=== PATIENT | female | born 1985 ===

== ENCOUNTER 2020-04-30 09:52 | Inpatient (IN) ==
[2020-04-30] MEDS ORDERED: Lactated Ringers 1000 ml BAG 1,000 ML IV ONE (11:32)
[2020-04-30] MEDS ORDERED: Oxytocin in LR 20 UNITS/1,000 ML BAG IVPB SCH (12:00)
[2020-04-30 12:17] LABS: ABS Lymphocytes 1.7 10^3/ul (1.0-4.8); ABS Monocytes 1.2 10^3/ul (0-0.8); ABS Neutrophils 7.8 10^3/ul (1.5-7.7); Eosinophil % 0.5 %; Hematocrit 37 % (35-47); Hemoglobin 12.6 g/dL (12.0-16.0); Lymphocyte % 15.7 %; Mean Corpuscular HGB Conc 34 g/dL (31-36); Mean Corpuscular Hemoglobin 31 pg (27-31); Mean Corpuscular Volume 91 fL (80-97); Platelet Count 148 10^3/uL (150-450); Red Blood Count 4.12 10^6 /uL (3.70-4.87); Red Cell Distribution Width 14 % (10-15); White Blood Count 10.8 10^3/uL (3.5-10.8)
[2020-04-30 12:53] LABS: Urine Benzodiazepine Screen None Detected (None Detect); Urine Cannabinoids Screen None Detected (None Detect); Urine Opiates Screen None Detected (None Detect)
[2020-04-30] MEDS: Lactated Ringers 1000 ml BAG 1,000 ML IV SCH ×2 (14:13→23:04)
[2020-05-01] MEDS: Lactated Ringers 1000 ml BAG 1,000 ML IV SCH (02:59)
[2020-05-01] MEDS ORDERED: OBEPIDURAL 250 ML EPIDURAL ONE (13:10)
[2020-05-01] MEDS ORDERED: Sodium Citrate/Citric Acid LIQ 15 ML UDC PO PRN (14:08)
[2020-05-01] MEDS ORDERED: Lactated Ringers 1000 ml BAG 500 ML IV PRN ×2 (14:08)
[2020-05-01] MEDS ORDERED: EPHEDrine (Pressors) 50 MG/ML VIAL IV PUSH PRN ×2 (14:08)
[2020-05-01] MEDS ORDERED: Lactated Ringers 1000 ml BAG 1,000 ML IV ONE (14:08)
[2020-05-01] MEDS ORDERED: Phenylephrine 40 mcg/mL 10mL (400mcg) SYRINGE IV PUSH PRN ×2 (14:08)
[2020-05-01] MEDS ORDERED: OBEPIDURAL 250 ML EPIDURAL SCH (15:00)
[2020-05-01] MEDS ORDERED: Lactated Ringers 1000 ml BAG 1,000 ML IV SCH (15:00)
[2020-05-02] MEDS ORDERED: Dibucaine 1% OINT 28.35 GM TUBE PR PRN (05:47)
[2020-05-02] MEDS ORDERED: Witch Hazel PAD JAR TOPICAL PRN (05:47)
[2020-05-02] MEDS ORDERED: Glycerin ADULT 2.4 gm SUPP PR PRN (05:47)
[2020-05-02] MEDS ORDERED: Methylergonovine 0.2 mg AMPULE 1 ml AMP IM ONE (05:57)
[2020-05-02] MEDS ORDERED: Oxytocin in LR 20 UNITS/1,000 ML BAG IVPB SCH (06:00)
[2020-05-02 08:46] LABS: Hematocrit 27 % (35-47); Hemoglobin 9.3 g/dL (12.0-16.0); Mean Corpuscular HGB Conc 34 g/dL (31-36); Mean Corpuscular Hemoglobin 31 pg (27-31); Mean Corpuscular Volume 91 fL (80-97); Mean Platelet Volume 10.9 fL (7.4-10.4); Platelet Count 127 10^3/uL (150-450); Red Cell Distribution Width 13 % (10-15); White Blood Count 27.4 10^3/uL (3.5-10.8)
[2020-05-02 09:32] LABS: ABS Basophils 0.1 10^3/ul (0-0.2); ABS Lymphocytes 1.1 10^3/ul (1.0-4.8); ABS Monocytes 2.3 10^3/ul (0-0.8); ABS Neutrophils 23.9 10^3/ul (1.5-7.7); Lymphocyte % 4.2 %
[2020-05-02] MEDS ORDERED: Lidocaine 1% VIAL 10 MG/ML VIAL ONE (09:40)
[2020-05-02] MEDS ORDERED: Methylergonovine 0.2 mg AMPULE 1 ml AMP ONE (09:42)
[2020-05-02 11:48] LABS: Hematocrit 26 % (35-47); Hemoglobin 8.7 g/dL (12.0-16.0); Mean Corpuscular HGB Conc 34 g/dL (31-36); Mean Corpuscular Hemoglobin 31 pg (27-31); Mean Corpuscular Volume 91 fL (80-97); Mean Platelet Volume 10.6 fL (7.4-10.4); Platelet Count 129 10^3/uL (150-450); Red Cell Distribution Width 13 % (10-15); White Blood Count 26.2 10^3/uL (3.5-10.8)
[2020-05-02 11:50] LABS: ABS Lymphocytes 1.8 10^3/ul (1.0-4.8); ABS Monocytes 2.4 10^3/ul (0-0.8); ABS Neutrophils 21.9 10^3/ul (1.5-7.7); Eosinophil % 0.1 %
[2020-05-03 07:08] LABS: ABS Lymphocytes 2.1 10^3/ul (1.0-4.8); ABS Monocytes 1.3 10^3/ul (0-0.8); Eosinophil % 0.2 %; Hematocrit 21 % (35-47); Hemoglobin 7.2 g/dL (12.0-16.0); Lymphocyte % 11.2 %; Mean Corpuscular HGB Conc 34 g/dL (31-36); Mean Corpuscular Hemoglobin 31 pg (27-31); Mean Corpuscular Volume 91 fL (80-97); Mean Platelet Volume 10.4 fL (7.4-10.4); Platelet Count 125 10^3/uL (150-450); Red Blood Count 2.34 10^6 /uL (3.70-4.87); Red Cell Distribution Width 14 % (10-15); White Blood Count 18.5 10^3/uL (3.5-10.8)
[2020-05-03 19:31] LABS: Hematocrit 28 % (35-47); Hemoglobin 9.3 g/dL (12.0-16.0); Mean Corpuscular HGB Conc 33 g/dL (31-36); Mean Corpuscular Hemoglobin 31 pg (27-31); Mean Corpuscular Volume 94 fL (80-97); Red Cell Distribution Width 15 % (10-15); White Blood Count 18.9 10^3/uL (3.5-10.8)
[2020-05-03 19:51] LABS: ABS Eosinophils 0.1 10^3/ul (0-0.6); ABS Lymphocytes 2.5 10^3/ul (1.0-4.8); ABS Monocytes 1.6 10^3/ul (0-0.8); ABS Neutrophils 14.7 10^3/ul (1.5-7.7); Eosinophil % 0.3 %; Lymphocyte % 13.2 %; Mean Platelet Volume 10.6 fL (7.4-10.4); Platelet Count 87 10^3/uL (150-450)
[2020-05-04 09:50] VITALS: BP 111/70
== END 2020-05-04 19:11 | disposition home or self-care (01) | DRG 542 ==
LOC: MCHOBOUT 09:52 → MCHOB 10:22
PROVIDERS: ADMIT Midwife; ATTEND Midwife